=== PATIENT | male | born 1960 | race Caucasian/White ===

== ENCOUNTER 2019-01-22 18:51 | Inpatient (IN) | payer MEDICARE, MEDICAID ==
[~2019-01-22] VITALS: Ht 170.2 cm; Wt 81.4 kg
[2019-01-22 19:38] LABS: BASOPHILS % (AUTO) 0.3 % (0-1); EOSINOPHILS # (AUTO) 0.2 X10'3 (0-0.9); EOSINOPHILS % (AUTO) 2.3 % (0-6); HEMATOCRIT 37.1 % (42.0-52.0); LYMPHOCYTES % (AUTO) 11.2 % (21-51); MEAN CORPUSCULAR HEMOGLOBIN 33.2 PG (27.0-31.0); MEAN PLATELET VOLUME 7.5 FL (7.4-10.4); MONOCYTES # (AUTO) 0.8 X10'3 (0-0.9); MONOCYTES % (AUTO) 8.8 % (2-12); NEUTROPHILS # (AUTO) 6.7 X10'3 (1.8-7.7); NEUTROPHILS % (AUTO) 77.4 % (42-75); PLATELET COUNT 435 X10'3 (140-440); RED BLOOD COUNT 3.91 X10'6 (4.70-6.10); RED CELL DISTRIBUTION WIDTH 13.6 % (11.5-14.5); WHITE BLOOD COUNT 8.7 X10'3 (4.5-11.0)
[2019-01-22 19:46] LABS: ALANINE AMINOTRANSFERASE 28 U/L (12-78); ALBUMIN 3.2 G/DL (3.4-5.0); ALBUMIN/GLOBULIN RATIO 0.8 (1.1-1.5); ALKALINE PHOSPHATASE 97 IU/L (46-116); ANION GAP 6 (8-16); ASPARTATE AMINO TRANSFERASE 15 U/L (10-37); BILIRUBIN,TOTAL 0.4 MG/DL (0.1-1.0); BLOOD UREA NITROGEN 7 MG/DL (7-18); BUN/CREATININE RATIO 6.7 (5.4-32.0); CALCIUM 8.4 MG/DL (8.5-10.1); CHLORIDE 103 MMOL/L (99-107); CREATININE 1.05 MG/DL (0.60-1.10); GLUCOSE 117 MG/DL (70-104); POTASSIUM 3.9 MMOL/L (3.5-5.1); SODIUM 140 MMOL/L (135-145); TOTAL CARBON DIOXIDE 31.2 MMOL/L (24-32); TOTAL PROTEIN 7.1 G/DL (6.4-8.2); eGFR 72 ML/MIN
[2019-01-22 19:51] LABS: CLARITY,URINE SLIGHTLY CLOUDY (Clear); COLOR,URINE YELLOW (Yellow); GLUCOSE, URINE NEGATIVE (Neg); KETONES,URINE TRACE mg/dl (Neg); LEUKOCYTE ESTERASE ,URINE NEGATIVE (Neg); NITRITES, URINE NEGATIVE (Neg); OCCULT BLOOD,URINE SMALL (Neg); PROTEIN,URINE TRACE mg/dl (Neg)
--- NOTE | 2019-01-22 20:00 | NUR ---
Pt transported to X-ray by [facility].
[2019-01-22 20:01] LABS: UA COLLECTION TYPE CLN CATCH MIDSTREAM
[2019-01-22 20:02] LABS: BACTERIA,URINE FEW /HPF (Neg); MUCUS STRANDS MODERATE /LPF (Neg); RBC,URINE 0-2 /HPF (0-2); SQUAMOUS EPITHELIAL CELL,UR FEW /LPF (FEW); WBC,URINE 0-4 /HPF (0-4)
--- NOTE | 2019-01-22 21:10 | NUR ---
Attempted NG placement with three additional staff members at the bedside. Pt did not tolerate placement. Traumatic attempt by this nurse and another staff member. Provider aware unable to place NG tube. Pt's caregiver reports the patient required medication to help him tolerate the NG placement with recent admission at [facility].
[2019-01-22] MEDS ORDERED: potassium CL 10mEq/100ml bag 100 ML IV PRN ×2 (21:20)
[2019-01-22] MEDS ORDERED: potassium Cl 20 mEq SR tablet PO PRN ×2 (21:20)
[2019-01-22] MEDS ORDERED: ondansetron/PF 4mg/2ml inj IV PRN (21:20)
[2019-01-22] MEDS ORDERED: LIDOcaine Viscous 15ml cup MM ONE (21:25)
[2019-01-22] MEDS ORDERED: LORazepam 2 mg/ml vial IV ONE (21:25)
[2019-01-22] MEDS ORDERED: LORA1TAB PO (21:48)
[2019-01-22] MEDS ORDERED: OXCA600T9 PO (21:48)
[2019-01-22] MEDS ORDERED: RISP1TAB3 PO (21:48)
[2019-01-22] MEDS ORDERED: PANT20TA3 PO (21:48)
[2019-01-22] MEDS ORDERED: ACET-1015 PO (21:48)
[2019-01-22] MEDS ORDERED: CITALOPRAM PO (21:48)
[2019-01-22] MEDS ORDERED: FLO0.4C PO (21:48)
[2019-01-22] MEDS ORDERED: LEVE500T PO (21:48)
[2019-01-22] MEDS ORDERED: ONDA8TAB13 PO (21:48)
[2019-01-22] MEDS ORDERED: CELEXA PO (21:48)
--- NOTE | 2019-01-22 22:02 | NUR ---
Patient resting comfortably on gurney, caregiver at bedside. Ativan and Lido viscus given to help patient relax so NG can be put in. I will continue to monitor.
--- NOTE | 2019-01-22 22:57 | NUR ---
Patient in room . I have received report from Esme Oliveros Rn and had the opportunity to ask questions and will assume patient care upon arrival to the floor. Addendum: 01/22/19 at 2258 by Katie Lieberman RN Amended: Links added.
[2019-01-22] MEDS: normal saline 1000ml 1,000 ML IV SCH (23:21)
--- NOTE | 2019-01-22 23:23 | NUR ---
PT ARRIVED TO THE ROOM. VITALS TAKEN NO S&S OF DISTRESS.
--- NOTE | 2019-01-22 23:55 | NUR ---
dR Crystal IN TO SEE PT AND ASSESS HIM. PT PULLED nG OUT AND REINSERTED AND HOOKED UP TO SUCTION TAPED IN PLACE.
[2019-01-23] VITALS: BP 136/97
[2019-01-23] MEDS: morphine 2 MG/ML inj. syringe IV PRN ×4 (00:14→20:26)
--- NOTE | 2019-01-23 00:16 | NUR ---
PT NON VERBAL AND MEDICATED FOR ABD PAIN WENT OFF NODS AND FACIAL EXPRESSION REGARDING HIS ABD PAIN. MEDICATED WITH MORPHINE. RECIEVED SITTER AND WRIST RESTRAINTS ODRER FROM dR Crystal DUE TO PT PULLING nG OUT WHEN dR CRYSTAL WAS IN THE ROOM. EXPLAINED EVERYTHING TO THE PT BUT UNABLE TO DETERMINE HIS MENTAL AGE OR UNDERSTANDING OF WHY HE HAS THE ABDOMINAL PAIN AND WHY WE NEED THE TUBE TO STAY IN HIS NOSE.
--- NOTE | 2019-01-23 02:40 | NUR ---
2 women care givers from facility in to see pt. wanted an update and to coordinate care for the pt. they stated they would have a staff member come in at 7am to stay with him.
--- NOTE | 2019-01-23 03:59 | NUR ---
pt awoke shakinng hands back and forth. asked if he was in pain nodded yes and said we would give him medicine and he stopped the shaking. medicated with 1mg of morphine for the and he nodded in acknowledgement.
--- NOTE | 2019-01-23 04:28 | NUR ---
resting eyes closed without changes.
--- NOTE | 2019-01-23 04:36 | NUR ---
urinal put in place pt told he could pee in it and he did. did not like having urinal left in place.
[2019-01-23 06:02] LABS: BASOPHILS % (AUTO) 0.4 % (0-1); EOSINOPHILS # (AUTO) 0.2 X10'3 (0-0.9); EOSINOPHILS % (AUTO) 2.6 % (0-6); HEMATOCRIT 34.9 % (42.0-52.0); HEMOGLOBIN 12.4 g/dl (14.0-17.9); LYMPHOCYTES # (AUTO) 0.9 X10'3 (1.1-4.8); LYMPHOCYTES % (AUTO) 13.5 % (21-51); MEAN CORPUSCULAR HEMOGLOBIN 33.8 PG (27.0-31.0); MEAN CORPUSCULAR HGB CONC 35.4 g/dL (33.0-36.5); MEAN CORPUSCULAR VOLUME 95.2 FL (78-98); MEAN PLATELET VOLUME 7.4 FL (7.4-10.4); MONOCYTES # (AUTO) 0.7 X10'3 (0-0.9); MONOCYTES % (AUTO) 9.6 % (2-12); NEUTROPHILS # (AUTO) 5.1 X10'3 (1.8-7.7); NEUTROPHILS % (AUTO) 73.9 % (42-75); PLATELET COUNT 340 X10'3 (140-440); RED BLOOD COUNT 3.66 X10'6 (4.70-6.10); RED CELL DISTRIBUTION WIDTH 13.6 % (11.5-14.5); WHITE BLOOD COUNT 6.9 X10'3 (4.5-11.0)
[2019-01-23 06:11] LABS: ALBUMIN 2.8 G/DL (3.4-5.0); ANION GAP 9 (8-16); BLOOD UREA NITROGEN 5 MG/DL (7-18); BUN/CREATININE RATIO 6.7 (5.4-32.0); CALCIUM 7.9 MG/DL (8.5-10.1); CHLORIDE 104 MMOL/L (99-107); CREATININE 0.75 MG/DL (0.60-1.10); GLUCOSE 88 MG/DL (70-104); POTASSIUM 3.5 MMOL/L (3.5-5.1); SODIUM 141 MMOL/L (135-145); eGFR > 90 ML/MIN
--- NOTE | 2019-01-23 06:55 | NUR ---
Patient in room [facility]. I have received report from GALI Wilson and had the opportunity to ask questions and assume patient care.
--- NOTE | 2019-01-23 06:55 | NUR ---
Problems reprioritized. Patient report given, questions answered & plan of care reviewed with Swathi Wu. Addendum: 01/23/19 at 0656 by Katie Lieberman RN Amended: Links added.
[2019-01-23] MEDS ORDERED: CITA20TA2 PO (07:53)
[2019-01-23 08:00] VITALS: BP 147/86
[2019-01-23] MEDS: K and/or MAG REPLACEMENT MC SCH (08:00)
[2019-01-23] MEDS: pantoprazole 40 MG vial IV SCH (08:15)
[2019-01-23] MEDS: Levetiracetam-NS 500mg/100ml 100 ML IV SCH ×2 (08:25→20:25)
[2019-01-23] MEDS: normal saline 1000ml 1,000 ML IV SCH ×2 (08:32→17:18)
[2019-01-23] MEDS ORDERED: hydrALAZINE 20mg/ml inj. IV ONE (10:55)
[2019-01-23 12:00] VITALS: BP 160/113
[2019-01-23 13:00] VITALS: BP 139/94
--- NOTE | 2019-01-23 18:33 | NUR ---
Patient in room [facility]. I have received report from Melo Wu and had the opportunity to ask questions and assume patient care. Addendum: 01/23/19 at 1833 by Katie Lieberman RN Amended: Links added.
--- NOTE | 2019-01-23 18:35 | NUR ---
Patient in room [facility]. I have received report from Whitley Wu and had the opportunity to ask questions and assume patient care. Addendum: 01/23/19 at 8 by Ktaie Lieberman RN Amended: Links added.
--- NOTE | 2019-01-23 18:45 | NUR ---
Problems reprioritized. Patient report given, questions answered & plan of care reviewed with GALI Wilson.
--- NOTE | 2019-01-23 19:05 | NUR ---
sera stated he had no problem with wrist restraints on Jey. he stated he had to have them when he was hospitalized at [facility] as well. he said pt had the surgery was his first surgery to have and that he was told Jey had a lot of adhesions so had lysis of adhesions and that the Grandfather had with colon cancer at age 40 and Mother spinal cancer. he said earlier this year he had a colonoscopy and he was told it was fine.
[2019-01-23 19:35] VITALS: BP 155/100
--- NOTE | 2019-01-23 19:50 | NUR ---
Step Dad stated it has been years due to medication since pt has had a seizure.
--- NOTE | 2019-01-23 20:00 | NUR ---
pt alert step dad and step Mom in with pt. Step dad the conservator stated that pt has never spoken and he fell on a coffee can age 3 or 4 before he was to his mom and had the scar to back and right hip was from that. Min Etienne states has an older full brother in another state hasn't had really any contact with them. He has a 1/2 brother who is younger and is in the process of making him a secondary conservator for the pt. the 1/2 brother Marcelino lives in [place].
[2019-01-23] MEDS: risperiDONE 0.5mg tablet PO SCH (20:26)
[2019-01-23] MEDS: oxcarbazepine 150mg tablet PO SCH (20:26)
--- NOTE | 2019-01-23 22:00 | NUR ---
pt resting eyes closed without changes.
[2019-01-24] VITALS: BP 142/95
--- NOTE | 2019-01-24 | NUR ---
pt awake eating snacks. Addendum: 01/24/19 at 0045 by Katie Lieberman RN note on wrong pt. awake shook head on pain playing with his truck and car step dad brought him. paul mejia to suction draining brown green fld. pt non verbal.
--- NOTE | 2019-01-24 01:55 | NUR ---
pt inc of urine skin care done and repositioned in bed. pt playing with 2 trucks and his car holding them and showing them to staff.
[2019-01-24] MEDS: normal saline 1000ml 1,000 ML IV SCH ×3 (02:13→23:17)
--- NOTE | 2019-01-24 03:35 | NUR ---
pt resting has toys in his hands soft wrist restraints in place had released and redid them. ng remains to low suction intermittent,
--- NOTE | 2019-01-24 04:25 | NUR ---
remains resting without changes. noted 25o cc greenish yellow brown gastric secretions in the Ng tube for the night.
--- NOTE | 2019-01-24 05:44 | NUR ---
earlier pt denied needing to use the urinal noted he was inc of urine. skin care done and lien changed and repositioned to comfort.follows directions well. wrist restraints were removed and reapplied warm blankets applied and playing with his toys in the bed.
[2019-01-24 05:51] LABS: BASOPHILS % (AUTO) 0.4 % (0-1); EOSINOPHILS # (AUTO) 0.3 X10'3 (0-0.9); EOSINOPHILS % (AUTO) 2.8 % (0-6); HEMATOCRIT 41.1 % (42.0-52.0); HEMOGLOBIN 14.3 g/dl (14.0-17.9); LYMPHOCYTES # (AUTO) 0.8 X10'3 (1.1-4.8); MEAN CORPUSCULAR HEMOGLOBIN 32.9 PG (27.0-31.0); MEAN CORPUSCULAR HGB CONC 34.9 g/dL (33.0-36.5); MEAN CORPUSCULAR VOLUME 94.4 FL (78-98); MEAN PLATELET VOLUME 7.5 FL (7.4-10.4); MONOCYTES # (AUTO) 0.7 X10'3 (0-0.9); MONOCYTES % (AUTO) 7.2 % (2-12); NEUTROPHILS # (AUTO) 7.5 X10'3 (1.8-7.7); NEUTROPHILS % (AUTO) 80.6 % (42-75); PLATELET COUNT 353 X10'3 (140-440); RED BLOOD COUNT 4.36 X10'6 (4.70-6.10); RED CELL DISTRIBUTION WIDTH 13.6 % (11.5-14.5); WHITE BLOOD COUNT 9.3 X10'3 (4.5-11.0)
[2019-01-24 06:05] LABS: ALBUMIN 3.2 G/DL (3.4-5.0); ANION GAP 13 (8-16); BLOOD UREA NITROGEN 5 MG/DL (7-18); BUN/CREATININE RATIO 7.1 (5.4-32.0); CALCIUM 8.2 MG/DL (8.5-10.1); CHLORIDE 101 MMOL/L (99-107); GLUCOSE 66 MG/DL (70-104); POTASSIUM 3.8 MMOL/L (3.5-5.1); SODIUM 139 MMOL/L (135-145); TOTAL CARBON DIOXIDE 25.4 MMOL/L (24-32); eGFR > 90 ML/MIN
--- NOTE | 2019-01-24 06:50 | NUR ---
Patient in room [facility]. I have received report from GALI Wilson and had the opportunity to ask questions and assume patient care.
--- NOTE | 2019-01-24 06:52 | NUR ---
Problems reprioritized. Patient report given, questions answered & plan of care reviewed with Whitley Wu. Addendum: 01/24/19 at 0653 by Katie Lieberman RN Amended: Links added.
[2019-01-24 07:08] VITALS: BP 150/93
[2019-01-24] MEDS: K and/or MAG REPLACEMENT MC SCH (08:00)
[2019-01-24] MEDS: risperiDONE 0.5mg tablet PO SCH ×2 (08:00→20:01)
[2019-01-24] MEDS: Levetiracetam-NS 500mg/100ml 100 ML IV SCH ×2 (09:16→20:01)
[2019-01-24] MEDS: pantoprazole 40 MG vial IV SCH (09:16)
[2019-01-24] MEDS: tamsulosin 0.4mg capsule PO SCH (09:16)
[2019-01-24] MEDS: oxcarbazepine 150mg tablet PO SCH ×2 (09:16→20:02)
[2019-01-24 11:00] VITALS: BP 150/95
[2019-01-24 18:00] VITALS: BP 122/96
--- NOTE | 2019-01-24 18:38 | NUR ---
Problems reprioritized. Patient report given, questions answered & plan of care reviewed with GALI Petty.
--- NOTE | 2019-01-24 21:43 | NUR ---
Patient in room [facility]. I have received report from GALI Cherry and had the opportunity to ask questions and assume patient care. Addendum: 01/24/19 at 2144 by Malinda Vee RN Amended: Links added.
[2019-01-25 00:42] VITALS: BP 125/75
[2019-01-25 05:32] LABS: BASOPHILS % (AUTO) 0.3 % (0-1); EOSINOPHILS # (AUTO) 0.3 X10'3 (0-0.9); EOSINOPHILS % (AUTO) 3.6 % (0-6); HEMATOCRIT 38.7 % (42.0-52.0); HEMOGLOBIN 13.6 g/dl (14.0-17.9); LYMPHOCYTES # (AUTO) 0.8 X10'3 (1.1-4.8); LYMPHOCYTES % (AUTO) 10.4 % (21-51); MEAN CORPUSCULAR HEMOGLOBIN 32.8 PG (27.0-31.0); MEAN CORPUSCULAR HGB CONC 35.2 g/dL (33.0-36.5); MEAN CORPUSCULAR VOLUME 93.3 FL (78-98); MEAN PLATELET VOLUME 7.3 FL (7.4-10.4); MONOCYTES # (AUTO) 0.6 X10'3 (0-0.9); MONOCYTES % (AUTO) 7.9 % (2-12); NEUTROPHILS # (AUTO) 5.6 X10'3 (1.8-7.7); NEUTROPHILS % (AUTO) 77.8 % (42-75); PLATELET COUNT 355 X10'3 (140-440); RED BLOOD COUNT 4.15 X10'6 (4.70-6.10); RED CELL DISTRIBUTION WIDTH 13.4 % (11.5-14.5); WHITE BLOOD COUNT 7.2 X10'3 (4.5-11.0)
[2019-01-25 05:54] LABS: ALBUMIN 2.9 G/DL (3.4-5.0); ANION GAP 10 (8-16); BLOOD UREA NITROGEN 4 MG/DL (7-18); BUN/CREATININE RATIO 5.1 (5.4-32.0); CALCIUM 8.3 MG/DL (8.5-10.1); CHLORIDE 103 MMOL/L (99-107); CREATININE 0.79 MG/DL (0.60-1.10); GLUCOSE 86 MG/DL (70-104); POTASSIUM 3.7 MMOL/L (3.5-5.1); SODIUM 140 MMOL/L (135-145); TOTAL CARBON DIOXIDE 27.3 MMOL/L (24-32); eGFR > 90 ML/MIN
--- NOTE | 2019-01-25 06:15 | NUR ---
Patient in room [facility]. I have received report from GALI MEEKS and had the opportunity to ask questions and assume patient care.
--- NOTE | 2019-01-25 06:16 | NUR ---
Problems reprioritized. Patient report given, questions answered & plan of care reviewed with GALI Cherry. Addendum: 01/25/19 at 0616 by Malinda Vee RN Amended: Links added.
[2019-01-25 07:36] VITALS: BP 114/78
[2019-01-25] MEDS: Levetiracetam-NS 500mg/100ml 100 ML IV SCH (07:52)
[2019-01-25] MEDS: tamsulosin 0.4mg capsule PO SCH (07:52)
[2019-01-25] MEDS: risperiDONE 0.5mg tablet PO SCH ×2 (07:52→21:04)
[2019-01-25] MEDS: oxcarbazepine 150mg tablet PO SCH ×2 (07:52→21:04)
[2019-01-25] MEDS: pantoprazole 40 MG vial IV SCH (07:53)
[2019-01-25] MEDS: K and/or MAG REPLACEMENT MC SCH (08:00)
[2019-01-25 11:30] VITALS: BP 115/75
[2019-01-25] MEDS: normal saline 1000ml 1,000 ML IV SCH ×2 (13:15→19:17)
[2019-01-25 13:44] VITALS: BP 123/81
--- NOTE | 2019-01-25 18:12 | NUR ---
Problems reprioritized. Patient report given, questions answered & plan of care reviewed with EVELIO RN.
[2019-01-25 19:30] VITALS: BP 132/82
[2019-01-25] MEDS: levetiracetam 250mg tablet PO SCH (21:05)
[2019-01-25] MEDS: morphine 2 MG/ML inj. syringe IV PRN (21:33)
[2019-01-26] VITALS: BP 120/84
[2019-01-26] MEDS: normal saline 1000ml 1,000 ML IV SCH (05:06)
[2019-01-26 05:18] LABS: BASOPHILS % (AUTO) 0.5 % (0-1); EOSINOPHILS # (AUTO) 0.2 X10'3 (0-0.9); EOSINOPHILS % (AUTO) 3.9 % (0-6); HEMATOCRIT 39.6 % (42.0-52.0); HEMOGLOBIN 13.5 g/dl (14.0-17.9); LYMPHOCYTES # (AUTO) 0.9 X10'3 (1.1-4.8); MEAN CORPUSCULAR HEMOGLOBIN 32.5 PG (27.0-31.0); MEAN CORPUSCULAR VOLUME 95.7 FL (78-98); MEAN PLATELET VOLUME 7.4 FL (7.4-10.4); MONOCYTES # (AUTO) 0.6 X10'3 (0-0.9); MONOCYTES % (AUTO) 10.3 % (2-12); NEUTROPHILS # (AUTO) 4.4 X10'3 (1.8-7.7); NEUTROPHILS % (AUTO) 70.3 % (42-75); PLATELET COUNT 325 X10'3 (140-440); RED BLOOD COUNT 4.14 X10'6 (4.70-6.10); RED CELL DISTRIBUTION WIDTH 13.7 % (11.5-14.5); WHITE BLOOD COUNT 6.2 X10'3 (4.5-11.0)
[2019-01-26 05:30] LABS: ALBUMIN 2.9 G/DL (3.4-5.0); ANION GAP 6 (8-16); BLOOD UREA NITROGEN 2 MG/DL (7-18); BUN/CREATININE RATIO 2.6 (5.4-32.0); CALCIUM 8.4 MG/DL (8.5-10.1); CHLORIDE 105 MMOL/L (99-107); CREATININE 0.76 MG/DL (0.60-1.10); GLUCOSE 99 MG/DL (70-104); POTASSIUM 3.5 MMOL/L (3.5-5.1); SODIUM 141 MMOL/L (135-145); TOTAL CARBON DIOXIDE 29.8 MMOL/L (24-32); eGFR > 90 ML/MIN
--- NOTE | 2019-01-26 06:43 | NUR ---
Patient in room [facility]. I have received report from GALI Kirkland and had the opportunity to ask questions and assume patient care.
[2019-01-26 07:30] VITALS: BP 130/84
[2019-01-26] MEDS ORDERED: pantoprazole 40mg Tablet.DR PO SCH (07:30)
[2019-01-26] MEDS: K and/or MAG REPLACEMENT MC SCH (08:00)
[2019-01-26] MEDS: levetiracetam 250mg tablet PO SCH (08:58)
[2019-01-26] MEDS: oxcarbazepine 150mg tablet PO SCH (08:58)
[2019-01-26] MEDS: tamsulosin 0.4mg capsule PO SCH (08:58)
[2019-01-26] MEDS: risperiDONE 0.5mg tablet PO SCH (08:58)
[2019-01-26 11:00] VITALS: BP 109/75
--- NOTE | 2019-01-26 11:07 | NUR ---
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 Pt s/p KUB with results indicating bowel obstruction per MD notes with recommendations for NG tube for suctioning, with sitter to prevent pt from pulling at tube. Patient previously on full liquid diet documented with 100% PO intake. NG tube has been d/c'ed and diet has just been advanced to regular, pending documentation of PO intake. [facility] 01/26. No nutrition diagnosis at this time. Will continue to follow. Recommendations: 1) Continue with regular diet 2) Wt per rx Addendum: 01/26/19 at [address] Amended: Links added.
[2019-01-26] MEDS ORDERED: acetaminophen 325mg tablet PO PRN (12:25)
[2019-01-26] MEDS ORDERED: DOCU100C40 PO (13:08)
--- NOTE | 2019-01-26 15:58 | NUR ---
Pt discharged back to [facility], with all belongings, in private vehicle, accompanied by [facility] staff member. Discharge instructions and medications reviewed. New prescription to be faxed to facility. IV DC'd, cannula intact. Pt escorted to front lobby by PCT.
== END 2019-01-26 15:05 | disposition home or self-care (01) | DRG 388 ==
LOC: ER 18:52 → SUR 3N 23:14
PROVIDERS: ADMIT Internal Medicine; ATTEND Family Medicine
PROC: 0D9670Z Drainage of Stomach with Drainage Device, Via Natural or Artificial Opening (ICD-10-PCS; principal; 2019-01-23)
DX: K56.609 Unspecified intestinal obstruction, unspecified as to partial versus complete obstruction (principal); N17.0 Acute kidney failure with tubular necrosis; G80.9 Cerebral palsy, unspecified; N40.0 Benign prostatic hyperplasia without lower urinary tract symptoms; G40.909 Epilepsy, unspecified, not intractable, without status epilepticus; Z79.899 Other long term (current) drug therapy
CPT/HCPCS: 36415; 71045; 74018; 74176; 80048; 80053; 81001; 85025; 87081; 96361; 96374; 99285; C9113; G0378; J0360; J1953; J2060; J2270; J7030

== ENCOUNTER 2019-01-30 12:41 | Emergency (ER) | payer MEDICARE, MEDICAID ==
[~2019-01-30] VITALS: Ht 170.2 cm; Wt 78.6 kg
[~2019-01-30 12:41] MED LIST: ACET-1015 PO; CITA20TA2 PO; DOCU100C40 PO; FLO0.4C PO; LEVE500T PO; ONDA8TAB13 PO; OXCA600T9 PO; PANT20TA3 PO; RISP1TAB3 PO
[2019-01-30 13:19] LABS: BASOPHILS % (AUTO) 0.5 % (0-1); EOSINOPHILS # (AUTO) 0.2 X10'3 (0-0.9); EOSINOPHILS % (AUTO) 3.3 % (0-6); HEMATOCRIT 38.9 % (42.0-52.0); HEMOGLOBIN 13.7 g/dl (14.0-17.9); LYMPHOCYTES % (AUTO) 15.7 % (21-51); MEAN CORPUSCULAR HEMOGLOBIN 33.6 PG (27.0-31.0); MEAN CORPUSCULAR HGB CONC 35.2 g/dL (33.0-36.5); MEAN CORPUSCULAR VOLUME 95.6 FL (78-98); MEAN PLATELET VOLUME 7.3 FL (7.4-10.4); MONOCYTES # (AUTO) 0.5 X10'3 (0-0.9); MONOCYTES % (AUTO) 7.6 % (2-12); NEUTROPHILS # (AUTO) 4.5 X10'3 (1.8-7.7); NEUTROPHILS % (AUTO) 72.9 % (42-75); PLATELET COUNT 242 X10'3 (140-440); RED BLOOD COUNT 4.06 X10'6 (4.70-6.10); RED CELL DISTRIBUTION WIDTH 13.6 % (11.5-14.5); WHITE BLOOD COUNT 6.1 X10'3 (4.5-11.0)
[2019-01-30 13:35] LABS: ALANINE AMINOTRANSFERASE 18 U/L (12-78); ALBUMIN 3.4 G/DL (3.4-5.0); ALBUMIN/GLOBULIN RATIO 0.9 (1.1-1.5); ALKALINE PHOSPHATASE 94 IU/L (46-116); ANION GAP 6 (8-16); ASPARTATE AMINO TRANSFERASE 12 U/L (10-37); BILIRUBIN,TOTAL 0.4 MG/DL (0.1-1.0); BLOOD UREA NITROGEN 7 MG/DL (7-18); BUN/CREATININE RATIO 7.7 (5.4-32.0); CALCIUM 8.4 MG/DL (8.5-10.1); CHLORIDE 102 MMOL/L (99-107); CREATININE 0.91 MG/DL (0.60-1.10); GLUCOSE 182 MG/DL (70-104); POTASSIUM 4.1 MMOL/L (3.5-5.1); SODIUM 138 MMOL/L (135-145); TOTAL CARBON DIOXIDE 30.4 MMOL/L (24-32); TOTAL PROTEIN 7.1 G/DL (6.4-8.2); eGFR 85 ML/MIN
[2019-01-30] MEDS ORDERED: ondansetron 4mg rapidly disintigrating tab PO ONE (13:45)
--- NOTE | 2019-01-30 13:50 | NUR ---
Patient non-verbal, caregiver at bedside.
--- NOTE | 2019-01-30 14:00 | NUR ---
Patient ambulated to restroom with steady gait. Patient unable to void/ provide urine sample at this time.
[2019-01-30 15:32] VITALS: BP 108/75
== END 2019-01-30 15:34 | disposition home or self-care (01) ==
LOC: ER 12:43
DX: K56.699 Other intestinal obstruction unspecified as to partial versus complete obstruction (principal); R50.9 Fever, unspecified; Z79.899 Other long term (current) drug therapy
CPT/HCPCS: 36415; 74176; 80053; 84484; 85025; 85610; 93005; 99284